=== PATIENT | female | born 1950 ===

== ENCOUNTER 2021-08-27 11:25 | Emergency (ER) | payer OTHER ==
[~2021-08-27] VITALS: Ht 165.1 cm; Wt 61.2 kg
[2021-08-27 12:51] VITALS: BP 132/86
[2021-08-27] MEDS ORDERED: CEPH500C PO (13:07)
== END 2021-08-27 13:23 | disposition home or self-care (01) ==
LOC: ER 11:25
DX: S16.1XXA Strain of muscle, fascia and tendon at neck level, initial encounter (principal); S01.531A Puncture wound without foreign body of lip, initial encounter; R51.9 Headache, unspecified; M50.30 Other cervical disc degeneration, unspecified cervical region; E04.1 Nontoxic single thyroid nodule; I10 Essential (primary) hypertension; G89.29 Other chronic pain; M54.2 Cervicalgia; Z79.899 Other long term (current) drug therapy; W06.XXXA Fall from bed, initial encounter; Y93.89 Activity, other specified; Y92.89 Other specified places as the place of occurrence of the external cause; Y99.8 Other external cause status
CPT/HCPCS: 70450; 72125